=== PATIENT | female | born 1995 | race Caucasian/White ===

== ENCOUNTER 2017-12-07 10:55 | Inpatient (IN) | payer OTHER ==
[~2017-12-07] VITALS: Ht 160 cm; Wt 86.2 kg
[2017-12-07] MEDS ORDERED: OXYTOCIN 10 USP UNITS/ML 20 UNIT in LACTATED RINGERS 1000ML 1,000 ML IV SCH (11:30)
[2017-12-07] MEDS ORDERED: AMPICILLIN 2GM+NS 100ML 100 ML IV SCH (11:30)
[2017-12-07] MEDS ORDERED: OXYTOCIN 10 USP UNITS/ML ONE (12:24)
[2017-12-07] MEDS ORDERED: LACTATED RINGERS 1000ML 1,000 ML IV ONE (12:24)
[2017-12-07 12:33] LABS: APPEARANCE,URINE Clear (CLEAR); BILIRUBIN,URINE Negative (NEGATIVE); COLOR,URINE Yellow (YELLOW); GLUCOSE, URINE (UA) Negative (NEGATIVE); KETONES,URINE Negative (NEGATIVE); LEUKOCYTE ESTERASE ,URINE Negative (NEGATIVE); NITRATE,URINE Negative (NEGATIVE); OCCULT BLOOD,URINE Negative (NEGATIVE); PROTEIN,URINE Negative (NEGATIVE); UROBILINOGEN,URINE 0.2 mg/dL (0.2-1.0)
[2017-12-07 12:55] LABS: HEMATOCRIT 38.4 % (36-48); MEAN CORPUSCULAR HEMOGLOBIN 34.9 pg (27.0-33.0); MEAN CORPUSCULAR HGB CONC 35.6 g/dL (32.0-36.0); MEAN CORPUSCULAR VOLUME 98.1 fL (79-99); PLATELET COUNT (AUTO) 222 K/uL (130-400); RED BLOOD CELL COUNT(AUTO) 3.92 MIL/uL (4.00-5.50); RED CELL DISTRIBUTION WIDTH 12.2 % (11.0-15.5); WHITE BLOOD COUNT (AUTO) 10.7 K/uL (4.8-10.8)
[2017-12-07 13:00] LABS: CREATININE 0.5 mg/dL (0.5-1.5); POTASSIUM 4.1 mmol/L (3.5-5.1)
[2017-12-07 13:05] LABS: BILIRUBIN,TOTAL 0.6 mg/dL (0.2-1.0); TOTAL PROTEIN, SERUM 7.3 g/dL (6.0-8.3); URIC ACID 5.1 mg/dL (2.6-7.2)
[2017-12-07 13:13] LABS: INR 0.87 (0.85-1.15); PARTIAL THROMBOPLASTIN TIME 26.5 SEC (26.3-35.5); PROTHROMBIN TIME 9.2 SEC (9.6-11.6)
[2017-12-07] MEDS ORDERED: EPHEDRINE SULFATE 50 MG/ML AMPULE IVP PRN (16:00)
[2017-12-07] MEDS ORDERED: NALOXONE HCL 0.4 MG/1 ML ML IV PRN (16:00)
[2017-12-07] MEDS ORDERED: LACTATED RINGERS 500 ML 500 ML IV PRN (16:00)
[2017-12-07] MEDS ORDERED: OXYTOCIN-LR 20 UNITS/1000 ML 1,000 ML IV SCH (16:19)
[2017-12-07] MEDS: AMPICILLIN 1GM+NS 50ML 50 ML IV SCH ×2 (17:12→20:45)
[2017-12-07] MEDS: LACTATED RINGERS 1000ML 1,000 ML IV PRN ×2 (20:16→22:39)
[2017-12-08] MEDS ORDERED: CEFAZOLIN SODIUM 1 GM VIAL IVP PRN (00:15)
[2017-12-08] MEDS ORDERED: LACTATED RINGERS 1000ML 1,000 ML IV SCH (00:15)
[2017-12-08] MEDS ORDERED: EPHEDRINE-NS PF 50MG/5ML SYRINGE IV ONE (00:34)
[2017-12-08] MEDS ORDERED: LIDOCAINE HCL-MPF 2% 10ML AMP IJ ONE (00:34)
[2017-12-08] MEDS ORDERED: OXYTOCIN 10 UNIT/1ML 10ML VIAL ONE (00:35)
[2017-12-08] MEDS ORDERED: BUPIVACAINE/PF 0.25% 30ML VIAL IJ ONE (00:35)
[2017-12-08] MEDS ORDERED: FENTANYL CITRATE PF 50 MCG/1 ML 2ML VIAL ONE (00:38)
[2017-12-08] MEDS ORDERED: MIDAZOLAM HCL 1 MG/ML 2ML VIAL ONE (00:38)
[2017-12-08] MEDS ORDERED: ONDANSETRON HCL 4 MG/2 ML VIAL ONE (01:13)
[2017-12-08] MEDS ORDERED: NEOSTIGMINE 5MG/5ML SYR IV ONE (01:14)
[2017-12-08] MEDS ORDERED: ROCURONIUM 10MG/1ML SYR 10 MG/ML ML ONE (01:14)
[2017-12-08] MEDS ORDERED: DiphenhydrAMINE HCL 50 MG/ML VIAL ONE (01:14)
[2017-12-08] MEDS ORDERED: OXYTOCIN-LR 20 UNITS/1000 ML 1,000 ML IV PRN (01:25)
[2017-12-08] MEDS ORDERED: DEXTROSE 5 %-0.45 % NACL 1,000 ML IV PRN (01:30)
[2017-12-08] MEDS ORDERED: PROMETHAZINE HCL 25 MG/ML 1ML AMPULE IM PRN ×2 (01:30→20:15)
[2017-12-08] MEDS ORDERED: MEPERIDINE-PF 75 MG/ML SYG IM PRN (01:30)
[2017-12-08] MEDS ORDERED: SODIUM CHLORIDE 0.9% 10 ML VIAL IVP PRN (01:30)
[2017-12-08] MEDS ORDERED: IBUPROFEN 800 MG TAB ONE (02:35)
[2017-12-08] MEDS ORDERED: OXYTOCIN 10 USP UNITS/ML ONE (02:37)
[2017-12-08] MEDS ORDERED: OXYTOCIN 10 USP UNITS/ML 20 UNIT in LACTATED RINGERS 1000ML 1,000 ML IV SCH (07:00)
[2017-12-08 07:30] LABS: HEPATITIS Bs ANTIGEN SCREEN P Negative (Negative)
[2017-12-08 08:11] VITALS: BP 121/65
[2017-12-08] MEDS: ACETAMINOPHEN-CODEINE 300/30MG TAB PO PRN ×3 (09:22→18:00)
[2017-12-08 11:57] VITALS: BP 99/58
[2017-12-08] MEDS ORDERED: PREN-155 PO (14:51)
[2017-12-08] MEDS: IBUPROFEN 800 MG TAB PO SCH ×2 (15:11→22:52)
[2017-12-08 15:41] VITALS: BP 92/57
[2017-12-08 19:39] VITALS: BP 104/71
[2017-12-08] MEDS ORDERED: DiphenhydrAMINE HCL 50 MG/ML VIAL IVP PRN (20:15)
[2017-12-08] MEDS ORDERED: ROPIVACAINE 0.2%200ML EPIDURAL 200 ML EP SCH (20:15)
[2017-12-08] MEDS ORDERED: ONDANSETRON HCL 4 MG/2 ML 8 MG in SODIUM CHLORIDE 0.9% 50 ML IVP NR (20:15)
[2017-12-08] MEDS ORDERED: EPHEDRINE SULFATE 50 MG/ML AMPULE IVP PRN (20:15)
[2017-12-08] MEDS ORDERED: HYDROCODONE/ACETAMINOPHEN 5/325 MG TAB PO PRN ×2 (20:15)
[2017-12-08] MEDS ORDERED: ONDANSETRON HCL 4 MG/2 ML VIAL IVP PRN ×2 (20:15)
[2017-12-08] MEDS ORDERED: MORPHINE SULFATE 2 MG/ML 1ML SYG IVP PRN (20:15)
[2017-12-08] MEDS ORDERED: METOCLOPRAMIDE 10 MG/2 ML VIAL IVP PRN (20:15)
[2017-12-08] MEDS ORDERED: NALOXONE HCL 0.4 MG/1 ML ML IVP PRN (20:15)
[2017-12-08 23:06] VITALS: BP 103/58
[2017-12-09] MEDS: IBUPROFEN 800 MG TAB PO SCH ×4 (00:15→23:48)
[2017-12-09] MEDS ORDERED: IBUPROFEN 800 MG TAB PO SCH (01:30)
[2017-12-09 03:11] VITALS: BP 102/64
[2017-12-09 06:48] LABS: HEMATOCRIT 31.4 % (36-48); MEAN CORPUSCULAR HEMOGLOBIN 35.1 pg (27.0-33.0); MEAN CORPUSCULAR HGB CONC 35.4 g/dL (32.0-36.0); MEAN CORPUSCULAR VOLUME 99.1 fL (79-99); PLATELET COUNT (AUTO) 174 K/uL (130-400); RED BLOOD CELL COUNT(AUTO) 3.17 MIL/uL (4.00-5.50); RED CELL DISTRIBUTION WIDTH 12.2 % (11.0-15.5); WHITE BLOOD COUNT (AUTO) 13.2 K/uL (4.8-10.8)
[2017-12-09 07:34] VITALS: BP 96/52
[2017-12-09] MEDS ORDERED: BISACODYL 10 MG SUPP.RECT RC PRN (08:15)
[2017-12-09] MEDS ORDERED: LANOLIN 30GM OINTMENT TP PRN ×2 (08:15)
[2017-12-09] MEDS: DOCUSATE SODIUM 100 MG CAP PO SCH ×2 (08:34→20:43)
[2017-12-09 11:20] VITALS: BP 98/65
[2017-12-09 15:27] VITALS: BP 114/61
[2017-12-09 19:42] VITALS: BP 114/72
[2017-12-09 23:48] VITALS: BP 103/55
[2017-12-10 03:56] VITALS: BP 110/66
[2017-12-10 07:37] VITALS: BP 112/64
[2017-12-10] MEDS: DOCUSATE SODIUM 100 MG CAP PO SCH (09:28)
[2017-12-10] MEDS: IBUPROFEN 800 MG TAB PO SCH (09:31)
[2017-12-10 11:43] VITALS: BP 110/68
== END 2017-12-10 11:55 | disposition home or self-care (01) | DRG 766 ==
LOC: LDH 10:55 → WSH 12-08 06:58 → EDSTATUS 12-08 10:54 → WSH 12-09 09:48
PROVIDERS: ADMIT Specialist; ATTEND Specialist
PROC: 10D00Z1 Extraction of Products of Conception, Low, Open Approach (ICD-10-PCS; principal; 2017-12-08 00:30)
DX: O99.824 Streptococcus B carrier state complicating childbirth (principal); O76 Abnormality in fetal heart rate and rhythm complicating labor and delivery; Z37.0 Single live birth; Z3A.40 40 weeks gestation of pregnancy; Z28.21 Immunization not carried out because of patient refusal
CPT/HCPCS: 36415; 59510; 80053; 81003; 84550; 85027; 85384; 85610; 85730; 86592; 86850; 86900; 86901; 87340; A4314; A4344; A4606; J0290; J0690; J1200; J2175; J2250; J2405; J2550; J2590; J2710; J3010; J3490; J7120